=== PATIENT | female | born 1970 | race Caucasian/White ===

== ENCOUNTER 2017-09-20 18:10 | Emergency (ER) | payer BC ==
[~2017-09-20] VITALS: Ht 154.9 cm; Wt 113.4 kg
[2017-09-20 19:46] LABS: BILIRUBIN,URINE NEGATIVE (NEGATIVE); CLARITY,URINE SL CLOUDY (CLEAR); COLOR,URINE YELLOW (YELLOW); KETONES,URINE NEGATIVE (NEGATIVE); LEUKOCYTE ESTERASE ,URINE NEGATIVE (NEGATIVE); NITRITE,URINE NEGATIVE (NEGATIVE); PROTEIN,URINE DIPSTICK NEGATIVE (NEGATIVE); URINE UROBILINOGEN 1 mg/dL (0.2 - 1)
[2017-09-20 19:58] LABS: BACTERIA,URINE MANY /HPF; EPITHELIAL CELLS,URINE MODERATE /LPF; TRANSITIONAL EPI CELLS,URINE FEW
[2017-09-20 20:19] LABS: BASOPHILS # (AUTO) 0.1 (0.0-0.1); BASOPHILS % 0.4 % (0.0-1.0); EOSINOPHILS # (AUTO) 0.4 (0.0-0.4); HEMATOCRIT 37.3 % (34.2-44.1); HEMOGLOBIN 11.7 g/dL (12.0-16.0); LYMPHOCYTES # (AUTO) 3.1 (1.0-3.2); LYMPHOCYTES % 24.5 % (18.0-39.1); MEAN CORPUSCULAR HEMOGLOBIN 25.7 pg (28-32); MEAN CORPUSCULAR HGB CONC 31.4 g/dL (31-35); MEAN CORPUSCULAR VOLUME 81.8 fL (81-99); MONOCYTES # (AUTO) 0.8 (0.2-0.8); MONOCYTES % 6.8 % (4.4-11.3); NEUTROPHILS # (AUTO) 8.1 (2.1-6.9); PLATELET COUNT 390 x10e3/uL (140-360); RED BLOOD COUNT 4.56 x10e6/uL (3.6-5.1); RED CELL DISTRIBUTION WIDTH 16.6 % (11.7-14.4)
[2017-09-20 20:36] LABS: ALANINE AMINOTRANSFERASE 22 IU/L (0-55); ALBUMIN 3.6 g/dL (3.5-5.0); ALBUMIN/GLOBULIN RATIO 0.8 (0.8-2.0); ALKALINE PHOSPHATASE 134 IU/L (40-150); AMYLASE 41 U/L (25-125); ANION GAP 17.1 mmol/L (8-16); BLOOD UREA NITROGEN 14 mg/dL (7-26); BUN/CREATININE RATIO 15 (6-25); CALCIUM 9.7 mg/dL (8.4-10.2); CARBON DIOXIDE 25 mmol/L (22-29); CHLORIDE 103 mmol/L (98-107); CREATININE, SERUM 0.95 mg/dL (0.57-1.11); EST GLOMERULAR FILTRATION RATE > 60 ML/MIN (60-); GLUCOSE 112 mg/dL (74-118); LIPASE 15 U/L (8-78); POTASSIUM 4.1 mmol/L (3.5-5.1); SODIUM 141 mmol/L (136-145)
[2017-09-20 20:56] LABS: FREE THYROXINE INDEX 2.1694 (1.4-3.8); THYROID STIMULATING HORMONE 1.922 uIU/mL (0.350-4.940)
--- NOTE | 2017-09-20 21:57 | Diagnostic Imaging Report ---
EXAM: CT Abdomen and Pelvis WITH contrast INDICATION: Left abdominal pain COMPARISON: None. TECHNIQUE: Abdomen and pelvis were scanned utilizing a multidetector helical scanner from the lung base to the pubic symphysis after administration of IV contrast. Coronal and sagittal reformations were obtained. Routine protocol was performed. Scan was performed when during portal venous phase. IV CONTRAST: 100 mL of Isovue-370 ORAL CONTRAST: Water RADIATION DOSE: Total DLP: 857.5 mGy*cm Estimated effective dose: (DLP x 0.015 x size factor) mSv COMPLICATIONS: None FINDINGS: LINES and TUBES: None. LOWER THORAX: Unremarkable HEPATOBILIARY: The liver is diffuse hypodense compared to the spleen, consistent with diffuse hepatic diffuse hepatic steatosis. No focal hepatic lesions. No biliary ductal dilation. GALLBLADDER: No radio-opaque stones or sludge. No wall thickening. SPLEEN: No splenomegaly. PANCREAS: No focal masses or ductal dilatation. The pancreas appears diffusely fatty replaced. ADRENALS: No adrenal nodules KIDNEYS/URETERS: Kidneys enhance symmetrically. No hydronephrosis. No cystic or solid mass lesions. No stones. GI TRACT: No abnormal distention, wall thickening, or evidence of bowel obstruction. Appendix is normal. PELVIC ORGANS/BLADDER: Unremarkable. LYMPH NODES: No lymphadenopathy. VESSELS: Unremarkable. PERITONEUM / RETROPERITONEUM: No free air or fluid. BONES: Remarkable for posterior disc osteophyte complex at L1-2 level resulting in spinal canal narrowing best seen on series 300, image 88. SOFT TISSUES: Unremarkable. IMPRESSION: 1. No acute intra-abdominal or pelvic abnormality. Signed by: Dr. Edwin Bae M.D. on 09/20/2017 9:54 PM
[2017-09-20] MEDS ORDERED: SODIUM CHLORIDE 0.9% 50ML 50 ML ONE (23:58)
[2017-09-20] MEDS ORDERED: IOPAMIDOL 370 MG/ML 200 ML INFUS..BTL INJ ONE (23:59)
== END 2017-09-20 22:24 | disposition home or self-care (01) ==
LOC: ER 18:10
DX: R10.12 Left upper quadrant pain (principal); I10 Essential (primary) hypertension; F41.9 Anxiety disorder, unspecified; K21.9 Gastro-esophageal reflux disease without esophagitis; F32.9 Major depressive disorder, single episode, unspecified; K58.9 Irritable bowel syndrome, unspecified
CPT/HCPCS: 36415; 74177; 80053; 81001; 82150; 83690; 84436; 84443; 84479; 85025; 86850; 86900; 99284; Q9967

== ENCOUNTER → 2018-02-12 | Outpatient (CLI) | payer BC ==
--- NOTE | 2018-02-12 10:50 | Diagnostic Imaging Report ---
PROCEDURE:ABDOMINAL ULTRASOUND COMPARISON:None. INDICATIONS:EPIGASTRIC PAIN FINDINGS: Liver: Measures 15.9 cm in the midclavicular line. Increased hepatic parenchymal echogenicity. No focal mass. Main portal vein: Measures 10 mm with normal hepatopetal flow. Gallbladder: Has been removed. Common Bile Duct: Measures 0.7 cm. No echogenic filling defect. Sonographic Cotto's sign: Negative Right kidney: Measures 10.2 x 4.5 x 4.3 cm. No solid or cystic mass, echogenic calculi, or hydronephrosis. Normal parenchymal echogenicity. Left kidney: Measures 9.7 x 5.0 x 5.0 cm. No solid or cystic mass, echogenic calculi, or hydronephrosis. Normal parenchymal echogenicity. Spleen: Measures 9.5 x 4.5 x 4.0 cm. No mass. Pancreas: The visualized portions of the pancreas are normal. Inferior vena cava: Normal. Aorta: Normal. Ascites: None. CONCLUSION: 1. No acute sonographic abnormality. 2. Increased hepatic echogenicity compatible with fatty infiltration. Nando Bates D.O. Dictated by: Nando Bates D.O. on 02/12/2018 at 11:01 Electronically approved by: Nando Bates D.O. on 02/12/2018 at 11:01
== END ==
LOC: US 07:18
PROVIDERS: ATTEND Internal Medicine Gastroenterology
DX: R10.13 Epigastric pain (principal); R10.11 Right upper quadrant pain; R10.12 Left upper quadrant pain
CPT/HCPCS: 76700

== ENCOUNTER → 2019-04-27 | Day surgery (SDC) | payer BC ==
[~2019-04-27] MED LIST: CETIRIZINE HCL10 MG PO; FENTANYL CITRATE/PF 100MCG/2 ML INJ ONE; FLUOXETINE HCL20 M1 PO; HYOSCYAMINE 0.125 MG TAB ONE; LOSARTAN POTAS100 MG PO; MIDAZOLAM HCL 2 MG/2 ML VIAL ONE; OMEPRAZOLE40 MG PO; PANTOPRAZOLE SO40 MG PO; PROPOFOL IV EMULSION 10 MG/ML 20 ML VIAL ONE; PROPOFOL IV EMULSION 10 MG/ML 50 ML VIAL ONE
--- OUTSIDE RECORDS SUMMARY | 2019-04-27 12:40 | XMS REPORT ---
Author Author [facility] Address Unknown Phone Unavailable Care Team Providers Care Director [employer] Name Role Phone ANGELA KNIGHT Unavailable Unavailable Yanick WOODWARD Unavailable Unavailable Payers Payer Name Policy Type Policy Number Effective Date Expiration Date Problems This patient has no known problems. Allergies, Adverse Reactions, Alerts Allergy Name Allergy Type Status Severity Reaction(s) Onset Date Inactive Date Treating Clinician Comments No Known Allergies DA Active U 2013-03-13 00:00:00 Medications This patient has no known medications. Results Test Description Test Time Test Comments Text Results Atomic Results Result Comments US ABDOMEN COMPLETE 2018-02-12 11:01:00 [facility] [address] [address] Patient Name: ANNALISA YAN MR #: [id number] : 1970 Age/Sex: 47/F Req #: [id number] Adm Physician: Ordered by: ANGELA KNIGHT MD Report #: [id number] Location: US Room/Bed: Procedure: [id number] US/US ABDOMEN COMPLETE Exam Date: 02/12/18 Exam Time: 0756 REPORT STATUS: Signed PROCEDURE: ABDOMINAL ULTRASOUND COMPARISON: None. INDICATIONS: EPIGASTRIC PAIN FINDINGS: Liver: Measures 15.9 cm in the midclavicular line. Increased hepatic parenchymal echogenicity. No focal mass. Main portal vein: Measures 10 mm with normal hepatopetal flow. Gallbladder: Has been removed. Common Bile Duct: Measures 0.7 cm. No echogenic filling defect. Sonographic Cotto's sign: Negative Right kidney: Measures 10.2 x 4.5 x 4.3 cm. No solid or cystic mass, echogenic calculi, or hydronephrosis. Normal parenchymal echogenicity. Left kidney: Measures 9.7 x 5.0 x 5.0 cm. No solid or cystic mass, echogenic calculi, or hydronephrosis. Normal parenchymal echogenicity. Spleen: Measures 9.5 x 4.5 x 4.0 cm. No mass. Pancreas: The visualized portions of the pancreas are normal. Inferior vena cava: Normal. Aorta: Normal. Ascites: None. CONCLUSION: 1. No acute sonographic abnormality. 2. Increased hepatic echogenicity compatible with fatty infiltration. Mirna Bates D.O. Dictated by: Mirna Bates D.O. on 02/12/2018 at 11:01 Electronically approved by: Mirna Bates D.O. on 02/12/2018 at 11:01 Dictated By: MIRNA BATES DO 1101 Transcribed By: LOUIS on 02/12/18 1101 COPY TO: ANGELA KNIGHT MD CT ABDOMEN/PELVIS W 2017-09-20 21:51:[address] [address] Patient Name: ANNALISA YAN MR #: [id number] : 1970 Age/Sex: 47/F Req #: [id number] Adm Physician: Ordered by: LETA BAUMANN MD Report #: [id number] Location: ER Room/Bed: Procedure: [id number] CT/CT ABDOMEN/PELVIS W Exam Date: 09/20/17 Exam Time: 2100 REPORT STATUS: Signed EXAM: CT Abdomen and Pelvis WITH contrast INDICATION: Left abdominal pain COMPARISON: None. TECHNIQUE: Abdomen and pelvis were scanned utilizing a multidetector helical scanner from the lung base to the pubic symphysis after administration of IV contrast. Coronal and sagittal reformations were obtained. Routine protocol was performed. Scan was performed when during portal venous phase. IV CONTRAST: 100 mL of Isovue-370 ORAL CONTRAST: Water RADIATION DOSE: Total DLP: 857.5 mGy*cm Estimated effective dose: (DLP x 0.015 x size factor) mSv COMPLICATIONS: None FINDINGS: LINES and TUBES: None. LOWER THORAX: Unremarkable HEPATOBILIARY: The liver is diffuse hypodense compared to the spleen, consistent with diffuse hepatic dif fuse hepatic steatosis. No focal hepatic lesions. No biliary ductal dilation. GALLBLADDER: No radio-opaque stones or sludge. No wall thickening. SPLEEN: No splenomegaly. PANCREAS: No focal masses or ductal dilatation. The pancreas appears diffusely fatty replaced. ADRENALS: No adrenal nodules KIDNEYS/URETERS: Kidneys enhance symmetrically. No hydronephrosis. No cystic or solid mass lesions. No stones. GI TRACT: No abnormal distention, wall thickening, or evidence of bowel obstruction. Appendix is normal. PELVIC ORGANS/BLADDER: Unremarkable. LYMPH NODES: No lymphadenopathy. VESSELS: Unremarkable. PERITONEUM / RETROPERITONEUM: No free air or fluid. BONES: Remarkable for posterior disc osteophyte complex at L1-2 level resulting in spinal canal narrowing best seen on series 300, image 88. SOFT TISSUES: Unremarkable. IMPRESSION: 1. No acute intra-abdominal or pelvic abnormality. Signed by: Dr. Edwin Bae M.D. on 09/20/2017 9:54 PM Dictated By: EDWIN WEBB MD 53 Transcribed By: MARA on 09/20/172153 COPY TO: LETA BAUMANN MD
--- NOTE | 2019-04-27 20:02 | Operative Report ---
DATE OF PROCEDURE: 04/27/2019 SURGEON: John Alegria MD PROCEDURES: EGD with polypectomy and biopsies and colonoscopy with polypectomy and biopsies. INDICATIONS FOR EGD: Upper abdominal pain, acid reflux. INDICATIONS FOR COLONOSCOPY: Colorectal cancer screening, chronic diarrhea. MEDICATIONS: The patient was done under MAC, please see anesthesiologist's note. PROCEDURE IN DETAIL: With the patient in the left lateral decubitus position, a flexible fiberoptic Olympus gastroscope was introduced into the esophagus under direct visualization without any difficulty. There was some patchy erythema noted in distal esophagus. The scope was then advanced with ease into the stomach and mucosa overlying the antrum revealed some patchy areas of erythema and [id number] edema, and biopsies were obtained and sent to stain for H. pylori. The pylorus was of normal contour and shape, was intubated with ease and the scope was advanced all the way to the second portion of the duodenum. Biopsies were obtained from the proximal second portion and the duodenal bulb to rule out sprue. The scope was then withdrawn back into the stomach and a large number of polyps were noted in the body and some were in the fundus. They were hyperplastic-appearing. Approximately 50 polyps were removed per snare electrocautery and retrieved. The scope was subsequently withdrawn and the patient tolerated the procedure well. IMPRESSION: 1. Mild distal esophagitis. 2. Gastritis, biopsied, biopsies sent to stain for Helicobacter pylori. 3. Gastric polyps, numerous, approximately 50 removed per snare electrocautery. 4. Rule out sprue. PLAN: Follow up histology. Initiate Protonix 40 mg 1 p.o. q.a.m. before meals. The patient might benefit from having a repeat EGD later this year and removal of residual gastric polyps. The patient was then turned around and after adequate lubrication of the anal canal, a flexible fiberoptic Olympus colonoscope was inserted into the rectum with ease and advanced all the way to the cecum. It was then withdrawn slowly, mucosa overlying the cecum appeared to be within normal limits. The ileocecal valve was intubated and the scope was advanced into the terminal ileum. Biopsies were obtained. The scope was then withdrawn back into the colon. It was then withdrawn slowly, mucosa overlying the ascending, transverse, descending, and sigmoid revealed some patchy mild inflammatory changes and multiple random biopsies were obtained. Approximately 5 mm polyp was removed per snare electrocautery from the descending colon. A semi circumferential ulcerated mass was noted in the rectum with distal and approximately 6 cm proximal to the anal verge and the mass appears to extend approximately 3 cm proximally. Multiple biopsies were obtained. The scope was then retroflexed into the distal rectum and small internal hemorrhoids were noted, none of which was actively bleeding. The scope was then straightened out and it was subsequently withdrawn after securing an adequate stool specimen that was sent for the appropriate stool studies. The patient tolerated the procedure well. IMPRESSION: 1. Colitis, mild, diffuse, patchy, multiple random biopsies were obtained. 2. Descending colon polyp, removed per snare electrocautery. 3. Rectal mass ulcerated, semi circumferential with distal edge, approximately 6 cm proximal to the anal verge, extending approximately 3 cm proximally, multiple biopsies obtained. 4. Internal hemorrhoids, none actively bleeding. PLAN: Follow up histology. Follow up stool studies. We will obtain a CT scan of the abdomen and pelvis. The patient will need a general surgical opinion. John Alegria MD [facility]/RALF /[id number] cc: Soren Smith DO
[2019-04-27 20:14] LABS: WBC,FECAL (FECAL LACTOFERRIN) NEGATIVE (NEGATIVE)
[2019-04-28 14:29] LABS: C DIFFICILE TOXIN A&B AMP PROB NEGATIVE (NEGATIVE)
== END | disposition home or self-care (01) ==
LOC: OR 12:38
PROVIDERS: ATTEND Internal Medicine Gastroenterology
DX: K52.9 Noninfective gastroenteritis and colitis, unspecified (principal); D12.8 Benign neoplasm of rectum; K31.7 Polyp of stomach and duodenum; K29.70 Gastritis, unspecified, without bleeding; K21.9 Gastro-esophageal reflux disease without esophagitis; K20.9 Esophagitis, unspecified; K64.8 Other hemorrhoids; I10 Essential (primary) hypertension; Z01.810 Encounter for preprocedural cardiovascular examination; Z68.41 Body mass index [BMI] 40.0-44.9, adult
CPT/HCPCS: 43239; 43251; 45380; 45385; 83630; 83993; 87045; 87177; 87328; 87493; 93005; J2250; J2704 ×2; J3010

== ENCOUNTER → 2019-04-29 | Outpatient (CLI) | payer BC ==
[~2019-04-29] MED LIST changes: +DIATRIZOATE MEGL/DIATRIZOA SOD 30 ML BTL PO ONE; -FENTANYL CITRATE/PF 100MCG/2 ML INJ ONE; -HYOSCYAMINE 0.125 MG TAB ONE; +IOPAMIDOL 370 MG/ML 200 ML INFUS..BTL INJ ONE; -MIDAZOLAM HCL 2 MG/2 ML VIAL ONE; -PANTOPRAZOLE SO40 MG PO; -PROPOFOL IV EMULSION 10 MG/ML 20 ML VIAL ONE; -PROPOFOL IV EMULSION 10 MG/ML 50 ML VIAL ONE; +SODIUM CHLORIDE 0.9% 50ML 50 ML ONE
[2019-04-29 16:28] LABS: BLOOD UREA NITROGEN 11 mg/dL (7-26); BUN/CREATININE RATIO 13 (6-25); CREATININE, SERUM 0.82 mg/dL (0.57-1.11); EST GLOMERULAR FILTRATION RATE > 60 ML/MIN (60-)
--- NOTE | 2019-04-29 17:48 | Diagnostic Imaging Report ---
EXAM: CT Abdomen and Pelvis WITH intravenous contrast INDICATION: Rectal mass COMPARISON: CT abdomen and pelvis of 09/20/2017 TECHNIQUE: Abdomen and pelvis were scanned utilizing a multidetector helical scanner from the lung base to the pubic symphysis after administration of IV contrast. Coronal and sagittal reformations were obtained. Routine protocol was performed. Scan was performed during portal venous phase. IV CONTRAST: 100mL of Isovue 370 ORAL CONTRAST: Gastrografin RADIATION DOSE: Total DLP: 834.7 mGy*cm Dose modulation, iterative reconstruction, and/or weight based adjustment of the mA/kV was utilized to reduce the radiation dose to as low as reasonably achievable. FINDINGS: LOWER THORAX: Numerous pulmonary nodules at the lung bases measuring up to 8 mm at the right middle lobe, 11 mm at the right lower lobe, 11 mm at the left lower lobe. HEPATOBILIARY: Numerous hypodense masses throughout the right and left liver, the largest of which measure up to 2.9 cm and the left liver and 3.5 cm centrally in the right liver. Diffuse hepatic steatosis. No biliary ductal dilation. Status post cholecystectomy. SPLEEN: No splenomegaly. PANCREAS: No focal masses or ductal dilatation. ADRENALS: No adrenal nodules. KIDNEYS/URETERS: No hydronephrosis or renal calculi. PELVIC ORGANS/BLADDER: Status post hysterectomy. PERITONEUM / RETROPERITONEUM: No free air or fluid. LYMPH NODES: 8 mm gastrohepatic lymph node. Prominent periportal lymph nodes measure up to 13 mm. VESSELS: Unremarkable. GI TRACT: Focal 4 cm long segment of rectal wall thickening (image 75 through 82. Small adjacent perirectal lymph nodes. No other areas of abnormal bowel thickening or bowel obstruction. Normal appendix. BONES AND SOFT TISSUES: No acute osseous injury. No suspicious lytic or blastic lesions. IMPRESSION: Focal segment of rectal wall thickening and adjacent rectal lymph nodes concerning for malignancy. Numerous right and left liver masses and right and left lung nodules, concerning for metastatic disease. Signed by: Reddy Thompson MD on 04/29/2019 5:46 PM
== END ==
LOC: CT 15:47
PROVIDERS: ATTEND Internal Medicine Gastroenterology
DX: R10.9 Unspecified abdominal pain (principal); R19.09 Other intra-abdominal and pelvic swelling, mass and lump; R16.0 Hepatomegaly, not elsewhere classified; R91.8 Other nonspecific abnormal finding of lung field
CPT/HCPCS: 36415; 74177; 82565; 84520; Q9967

== ENCOUNTER → 2019-05-03 | Day surgery (SDC) | payer BC ==
[2019-05-02 13:18] LABS: BASOPHILS # (AUTO) 0.1 (0.0-0.1); BASOPHILS % 0.6 % (0.0-1.0); EOSINOPHILS # (AUTO) 0.3 (0.0-0.4); EOSINOPHILS % 3.6 % (0.0-6.0); HEMATOCRIT 37.3 % (34.2-44.1); HEMOGLOBIN 11.1 g/dL (12.0-16.0); LYMPHOCYTES # (AUTO) 2.1 (1.0-3.2); LYMPHOCYTES % 24.7 % (18.0-39.1); MEAN CORPUSCULAR HEMOGLOBIN 24.1 pg (28-32); MEAN CORPUSCULAR HGB CONC 29.8 g/dL (31-35); MEAN CORPUSCULAR VOLUME 81.1 fL (81-99); MONOCYTES # (AUTO) 0.7 (0.2-0.8); MONOCYTES % 7.7 % (4.4-11.3); NEUTROPHILS # (AUTO) 5.3 (2.1-6.9); PLATELET COUNT 450 x10e3/uL (140-360); RED CELL DISTRIBUTION WIDTH 16.5 % (11.7-14.4)
[2019-05-02 13:38] LABS: ALANINE AMINOTRANSFERASE 18 IU/L (0-55); ALBUMIN 3.3 g/dL (3.5-5.0); ALBUMIN/GLOBULIN RATIO 0.8 (0.8-2.0); ALKALINE PHOSPHATASE 134 IU/L (40-150); BLOOD UREA NITROGEN 9 mg/dL (7-26); BUN/CREATININE RATIO 10 (6-25); CALCIUM 8.7 mg/dL (8.4-10.2); CARBON DIOXIDE 27 mmol/L (22-29); CHLORIDE 100 mmol/L (98-107); CREATININE, SERUM 0.92 mg/dL (0.57-1.11); EST GLOMERULAR FILTRATION RATE > 60 ML/MIN (60-); GLUCOSE 136 mg/dL (74-118); SODIUM 137 mmol/L (136-145)
[~2019-05-03] MED LIST changes: -DIATRIZOATE MEGL/DIATRIZOA SOD 30 ML BTL PO ONE; +FENTANYL CITRATE/PF 100MCG/2 ML INJ ONE; -IOPAMIDOL 370 MG/ML 200 ML INFUS..BTL INJ ONE; +LIDOCAINE HCL 2% LOCAL INJ 5 ML SDV VIAL INJ ONE; +MIDAZOLAM HCL 2 MG/2 ML VIAL ONE; +PANTOPRAZOLE SO40 MG PO; +PROPOFOL IV EMULSION 10 MG/ML 20 ML VIAL ONE; -SODIUM CHLORIDE 0.9% 50ML 50 ML ONE
[2019-05-03 11:25] VITALS: BP 153/91
--- NOTE | 2019-05-03 13:44 | Operative Report ---
DATE OF PROCEDURE: 05/03/2019 SURGEON: Livan Ortiz MD PREOPERATIVE DIAGNOSIS: Rectal tumor, rule out cancer. POSTOPERATIVE DIAGNOSIS: Rectal tumor, rule out cancer. OPERATION PERFORMED: Rigid sigmoidoscopy and rectal biopsies. ANESTHESIA: MAC. COMPLICATIONS: None. ESTIMATED BLOOD LOSS: Minimal. DESCRIPTION OF PROCEDURE: With the patient lying in bed in the lateral position under good IV sedation, the rigid sigmoidoscope was introduced and slowly and carefully advanced at about 8 cm from the anal verge. Immediately, an ulcerated hard mass was found posteriorly consistent with a large villous adenoma, which clinically was very hard in some areas consistent with malignancy. The top of the lesion was roughly about 4 or 5 cm above the lower edge and encompassed about half of the circumference posteriorly. Multiple biopsies were then done with the biopsy forceps and these were sent for pathological examination. There was some mild bleeding, which seemed to have subsided. The sigmoidoscope was removed. The patient tolerated the procedure well and returned to the recovery room in stable condition. Livan Ortiz MD J[facility]/MODL /[id number]
== END | disposition home or self-care (01) ==
LOC: OR 07:08
PROVIDERS: ATTEND Surgery
DX: D12.8 Benign neoplasm of rectum (principal); K76.0 Fatty (change of) liver, not elsewhere classified; R16.0 Hepatomegaly, not elsewhere classified; J45.909 Unspecified asthma, uncomplicated; I10 Essential (primary) hypertension; F41.9 Anxiety disorder, unspecified; Z01.812 Encounter for preprocedural laboratory examination
CPT/HCPCS: 36415 ×2; 45331; 80053; 84132; 85025; 88305; J2001; J2250; J2704; J3010